=== PATIENT | male | born 1960 | race Caucasian/White ===

== ENCOUNTER 2021-01-21 08:06 | Emergency (ER) | payer MEDICAID ==
[2021-01-21] MEDS ORDERED: LORazepam 2 MG/ML SDV IM ONE (08:10)
[2021-01-21] MEDS ORDERED: Haloperidol Lactate 5 MG/ML SDV IM ONE (08:18)
--- NOTE | 2021-01-21 08:21 | EDM.PDOCBH ---
<Manpreet Guaman G - Last Filed: 01/22/21 09:58> ED HPI GENERAL MEDICAL PROBLEM - General Chief Complaint: Behavioral/Psych Stated Complaint: EVAL [facility]IA [facility] Time Seen by Provider: 01/21/21 08:16 Source of Information: Reports: EMS. Denies: Patient, Old Records History Limitations: Reports: Altered Mental Status, Other (minimal records) - History of Present Illness INITIAL COMMENTS - FREE TEXT/NARRATIVE: 60 yo male is brought in via EMS due to combativeness and screaming out of his apartment window most of the night in [place]. Police responded to his residence and noted patient was incoherent and agitated so EMS was called. Needs a mental health eval. Received 250 mg of IM ketamine per EMS en route. Clinic notes show a past hx of 1 ppd of cigarettes, alcohol use(not quantitated), depression, ED, and anxiety. His blood sugars have been borderline elevated and he has hyperlipidemia not on treatment. He is on Zoloft 50 mg qd, Viagra prn, and a baby ASA qd. His LFT's have been normal on all previous screens with the last being 09/18/20. Police state that they had heard from his landlord that his mental health has been deteriorating over the past month. Has not been sleeping lately. No know hx of drug use. Lives alone. Has a sister in the area that has been trying to connect him with mental health/social workers over the past 6 days. No progress made so far. Onset: Sudden (as best we know) Onset Date: 01/21/21 Duration: Hour(s):, Constant Location: Reports: Generalized Quality: Reports: Other (pain not reported) Severity: Severe Improves with: Reports: Medication Worsens with: Reports: Other (unsure) Context: Reports: Other (See HPI) Associated Symptoms: Reports: No Other Symptoms Treatments CHARTER REPRESENTATIVE: Reports: Other (see below) (Ketamine 250 mg IM) - Related Data Allergies Allergy/AdvReac Type Severity Reaction Status Date / Time No Known Allergies Allergy Verified 01/21/21 08:30 Home Meds: Home Meds Sertraline [Zoloft] 50 mg PO DAILY 01/21/21 [History] Past Medical History HEENT History: Reports: Other (See Below) Other HEENT History: lazy eye, burn on back of neck Musculoskeletal History: Reports: Back Pain, Chronic - Infectious Disease History Infectious Disease History: Reports: Chicken Pox, Measles, Mumps, Rubella - Past Surgical History Musculoskeletal Surgical History: Reports: Carpal Tunnel ED ROS GENERAL - Review of Systems Review Of Systems: Unable To Obtain Reason Not Obtained: Patient sedated from Ketamine ED EXAM, BEHAVIORAL HEALTH - Physical Exam Exam: See Below Exam Limited By: No Limitations General Appearance: Alert, WD/WN, No Apparent Distress (under the influence of Ketamine) Eye Exam: Bilateral Eye: Normal Inspection, PERRL Ears: Normal External Exam, Normal Canal Nose: Normal Inspection, No Blood Throat/Mouth: Normal Inspection, Normal Lips Head: Atraumatic, Normocephalic Neck: Normal Inspection Respiratory/Chest: No Respiratory Distress, Lungs Clear, Normal Breath Sounds, No Accessory Muscle Use Cardiovascular: Regular Rate, Rhythm, No Edema GI/Abdominal: Soft, Non-Tender, No Distention Extremities: Normal Inspection, No Pedal Edema Neurological: No Motor/Sensory Deficits Psychiatric: Other (sedated on arrival with 4 point restraints) Skin Exam: Warm, Dry, Intact, Normal color, No rash COURSE, BEHAVIORAL HEALTH COMP - Course Re-Assessment/Re-Exam Date: 01/22/21 (Is full cooperative today, but not thinking completley logically or rationally. I called his sister who plans to come and visit and shared with her my concerns about his elevated LFT's. We, she and I, both feel his mental health needs should currently be the priority and that after that she would make sure he gets the medical care he needs for his liver issues. ) Medical Clearance: 01/22/21 07:46 Is medically stable and cooperative now. Has some random thoughts suggesting underlying mental illness. Some delusional thinking. Slept nearly 24 hrs here. 01/22/21 08:30 Got served an eviction notice this past Wed. Not sleeping or eating much if any since then. Sister says he does not drink ETOH. Does smoke marijuana. Delusions new over the past 3 weeks or so. Sister does not think he is taking his meds. 01/22/21 08:34 Departure - Departure Disposition: Home, Self-Care 01 Clinical Impression: Major depression Qualifiers: Major depression recurrence: single episode Active/Remission status: currently active Major depression episode severity: unspecified Qualified Code(s): F32.9 - Major depressive disorder, single episode, unspecified - Discharge Information Instructions: Major Depressive Disorder, Adult Referrals: Lani Salazar NP [Ordering Only Provider] - 01/25/21 1:30 pm (Please arrive 15 minutes early to register for your appointment.) Forms: ED Department Discharge Care Plan Goals: A referral was made to the [facility]. You will receive a call explaining services available. A referral was made to [facility] for an Adult Mental Health Services. [facility] phone number is [phone]. <Damián Ferreira - Last Filed: 01/23/21 06:29> COURSE, BEHAVIORAL HEALTH COMP - Course Medical Clearance: 01/22/21 18:00 [Dr. Ferreira] Care of the patient is transferred from Dr. Guaman to [place] while awaiting placement in an adult inpatient psychiatric facility. 01/23/21 07:00 Care of the patient turned over to Dr. Garsia at 0700 hrs while awaiting placement. <Dalton Garsia - Last Filed: 01/24/21 08:20> COURSE, BEHAVIORAL HEALTH COMP - Course Vital Signs: Last Vital Signs Temp 97.9 F 01/23/21 05:18 Pulse 71 01/23/21 22:35 Resp 14 01/23/21 22:35 BP 136/85 01/23/21 22:35 Pulse Ox 97 01/23/21 22:35 Orders, Labs, Meds: Active Orders 24 hr Category Date Time Status OT Evaluation and Treatment [CONS] Routine Cons 01/23/21 09:31 Active Laboratory Tests 01/21/21 01/21/21 01/21/21 Range/Units 08:15 08:15 08:15 WBC 8.8 (4.5-11.0) K/uL RBC 4.65 (4.30-5.90) M/uL Hgb 15.0 (12.0-15.0) g/dL Hct 43.4 (40.0-54.0) % MCV 93 (80-98) fL MCH 32 H (27-31) pg MCHC 35 (32-36) % Plt Count 184 (150-400) K/uL Sodium (140-148) mmol/L Potassium (3.6-5.2) mmol/L Chloride (100-108) mmol/L Carbon Dioxide (21-32) mmol/L Anion Gap (5.0-14.0) mmol/L BUN (7-18) mg/dL Creatinine (0.8-1.3) mg/dL Est Cr Clr Drug Dosing mL/min Estimated GFR (MDRD) (>60) Glucose (74-106) mg/dL Calcium (8.5-10.1) mg/dL Total Bilirubin (0.2-1.0) mg/dL AST (15-37) U/L ALT (12-78) U/L Alkaline Phosphatase (46-116) U/L Total Protein (6.4-8.2) g/dL Albumin (3.4-5.0) g/dL Globulin (2.3-3.5) g/dL Albumin/Globulin Ratio (1.2-2.2) TSH, Ultra Sensitive (0.358-3.740) uIU/mL Urine Color Yellow (YELLOW) Urine Appearance Slightly cloudy A (CLEAR) Urine pH 5.5 (5.0-8.0) Ur Specific [place] >= 1.030 (1.008-1.030) Urine Protein 30 H (NEGATIVE) mg/dL Urine Glucose (UA) Negative (NEGATIVE) mg/dL Urine Ketones Trace H (NEGATIVE) mg/dL Urine Occult Blood Small H (NEGATIVE) Urine Nitrite Negative (NEGATIVE) Urine Bilirubin Small H (NEGATIVE) Urine Urobilinogen 0.2 (0.2-1.0) EU/dL Ur Leukocyte Esterase Negative (NEGATIVE) Urine RBC 0-5 (0-5) Urine WBC 0-5 (0-5) Ur Epithelial Cells Few Amorphous Sediment Many Urine Bacteria Moderate Urine Mucus Many Urine Other See note Salicylates (2.0-20.0) mg/dL Urine Opiates Screen Negative (NEGATIVE) Ur Oxycodone Screen Negative (NEGATIVE) Urine Methadone Screen Negative (NEGATIVE) Ur Propoxyphene Screen Negative (NEGATIVE) Acetaminophen (10.0-30.0) ug/mL Ur Barbiturates Screen Negative (NEGATIVE) Ur Tricyclics Screen Negative (NEGATIVE) Ur Phencyclidine Scrn Negative (NEGATIVE) Ur Amphetamine Screen Negative (NEGATIVE) U Methamphetamines Scrn Negative (NEGATIVE) Urine MDMA Screen Negative (NEGATIVE) U Benzodiazepines Scrn Negative (NEGATIVE) U Cocaine Metab Screen Negative (NEGATIVE) U Marijuana (THC) Screen Presumptive positive H (NEGATIVE) Ethyl Alcohol mg/dL Influenza Type A RNA (NEGATIVE) RSV RNA (INAAT) (NEGATIVE) Influenza Type B RNA (NEGATIVE) SARS-CoV-2 RNA (KIEL) (NEGATIVE) 01/21/21 01/21/21 01/21/21 Range/Units 08:15 08:15 13:32 WBC (4.5-11.0) K/uL RBC (4.30-5.90) M/uL Hgb (12.0-15.0) g/dL Hct (40.0-54.0) % MCV (80-98) fL MCH (27-31) pg MCHC (32-36) % Plt Count (150-400) K/uL Sodium 139 L (140-148) mmol/L Potassium 4.0 (3.6-5.2) mmol/L Chloride 102 (100-108) mmol/L Carbon Dioxide 24 (21-32) mmol/L Anion Gap 17.0 H (5.0-14.0) mmol/L BUN 22 H (7-18) mg/dL Creatinine 0.7 L (0.8-1.3) mg/dL Est Cr Clr Drug Dosing 112.32 mL/min Estimated GFR (MDRD) > 60 (>60) Glucose 107 H (74-106) mg/dL Calcium 8.9 (8.5-10.1) mg/dL Total Bilirubin 0.6 (0.2-1.0) mg/dL AST 116 H (15-37) U/L ALT 110 H (12-78) U/L Alkaline Phosphatase 65 (46-116) U/L Total Protein 6.9 (6.4-8.2) g/dL Albumin 3.7 (3.4-5.0) g/dL Globulin 3.2 (2.3-3.5) g/dL Albumin/Globulin Ratio 1.2 (1.2-2.2) TSH, Ultra Sensitive (0.358-3.740) uIU/mL Urine Color (YELLOW) Urine Appearance (CLEAR) Urine pH (5.0-8.0) Ur Specific [place] (1.008-1.030) Urine Protein (NEGATIVE) mg/dL Urine Glucose (UA) (NEGATIVE) mg/dL Urine Ketones (NEGATIVE) mg/dL Urine Occult Blood (NEGATIVE) Urine Nitrite (NEGATIVE) Urine Bilirubin (NEGATIVE) Urine Urobilinogen (0.2-1.0) EU/dL Ur Leukocyte Esterase (NEGATIVE) Urine RBC (0-5) Urine WBC (0-5) Ur Epithelial Cells Amorphous Sediment Urine Bacteria Urine Mucus Urine Other Salicylates (2.0-20.0) mg/dL Urine Opiates Screen (NEGATIVE) Ur Oxycodone Screen (NEGATIVE) Urine Methadone Screen (NEGATIVE) Ur Propoxyphene Screen (NEGATIVE) Acetaminophen (10.0-30.0) ug/mL Ur Barbiturates Screen (NEGATIVE) Ur Tricyclics Screen (NEGATIVE) Ur Phencyclidine Scrn (NEGATIVE) Ur Amphetamine Screen (NEGATIVE) U Methamphetamines Scrn (NEGATIVE) Urine MDMA Screen (NEGATIVE) U Benzodiazepines Scrn (NEGATIVE) U Cocaine Metab Screen (NEGATIVE) U Marijuana (THC) Screen (NEGATIVE) Ethyl Alcohol 1 mg/dL Influenza Type A RNA Negative (NEGATIVE) RSV RNA (INAAT) Negative (NEGATIVE) Influenza Type B RNA Negative (NEGATIVE) SARS-CoV-2 RNA (KIEL) Negative (NEGATIVE) 01/21/21 01/21/21 01/22/21 Range/Units 18:08 18:08 08:49 WBC (4.5-11.0) K/uL RBC (4.30-5.90) M/uL Hgb (12.0-15.0) g/dL Hct (40.0-54.0) % MCV (80-98) fL MCH (27-31) pg MCHC (32-36) % Plt Count (150-400) K/uL Sodium (140-148) mmol/L Potassium (3.6-5.2) mmol/L Chloride (100-108) mmol/L Carbon Dioxide (21-32) mmol/L Anion Gap (5.0-14.0) mmol/L BUN (7-18) mg/dL Creatinine (0.8-1.3) mg/dL Est Cr Clr Drug Dosing mL/min Estimated GFR (MDRD) (>60) Glucose (74-106) mg/dL Calcium (8.5-10.1) mg/dL Total Bilirubin (0.2-1.0) mg/dL AST 110 H (15-37) U/L ALT (12-78) U/L Alkaline Phosphatase (46-116) U/L Total Protein (6.4-8.2) g/dL Albumin (3.4-5.0) g/dL Globulin (2.3-3.5) g/dL Albumin/Globulin Ratio (1.2-2.2) TSH, Ultra Sensitive (0.358-3.740) uIU/mL Urine Color (YELLOW) Urine Appearance (CLEAR) Urine pH (5.0-8.0) Ur Specific [place] (1.008-1.030) Urine Protein (NEGATIVE) mg/dL Urine Glucose (UA) (NEGATIVE) mg/dL Urine Ketones (NEGATIVE) mg/dL Urine Occult Blood (NEGATIVE) Urine Nitrite (NEGATIVE) Urine Bilirubin (NEGATIVE) Urine Urobilinogen (0.2-1.0) EU/dL Ur Leukocyte Esterase (NEGATIVE) Urine RBC (0-5) Urine WBC (0-5) Ur Epithelial Cells Amorphous Sediment Urine Bacteria Urine Mucus Urine Other Salicylates 4.1 (2.0-20.0) mg/dL Urine Opiates Screen (NEGATIVE) Ur Oxycodone Screen (NEGATIVE) Urine Methadone Screen (NEGATIVE) Ur Propoxyphene Screen (NEGATIVE) Acetaminophen 0.0 L (10.0-30.0) ug/mL Ur Barbiturates Screen (NEGATIVE) Ur Tricyclics Screen (NEGATIVE) Ur Phencyclidine Scrn (NEGATIVE) Ur Amphetamine Screen (NEGATIVE) U Methamphetamines Scrn (NEGATIVE) Urine MDMA Screen (NEGATIVE) U Benzodiazepines Scrn (NEGATIVE) U Cocaine Metab Screen (NEGATIVE) U Marijuana (THC) Screen (NEGATIVE) Ethyl Alcohol mg/dL Influenza Type A RNA (NEGATIVE) RSV RNA (INAAT) (NEGATIVE) Influenza Type B RNA (NEGATIVE) SARS-CoV-2 RNA (KIEL) (NEGATIVE) 01/22/21 Range/Units 17:40 WBC (4.5-11.0) K/uL RBC (4.30-5.90) M/uL Hgb (12.0-15.0) g/dL Hct (40.0-54.0) % MCV (80-98) fL MCH (27-31) pg MCHC (32-36) % Plt Count (150-400) K/uL Sodium (140-148) mmol/L Potassium (3.6-5.2) mmol/L Chloride (100-108) mmol/L Carbon Dioxide (21-32) mmol/L Anion Gap (5.0-14.0) mmol/L BUN (7-18) mg/dL Creatinine (0.8-1.3) mg/dL Est Cr Clr Drug Dosing mL/min Estimated GFR (MDRD) (>60) Glucose (74-106) mg/dL Calcium (8.5-10.1) mg/dL Total Bilirubin (0.2-1.0) mg/dL AST (15-37) U/L ALT (12-78) U/L Alkaline Phosphatase (46-116) U/L Total Protein (6.4-8.2) g/dL Albumin (3.4-5.0) g/dL Globulin (2.3-3.5) g/dL Albumin/Globulin Ratio (1.2-2.2) TSH, Ultra Sensitive 0.894 (0.358-3.740) uIU/mL Urine Color (YELLOW) Urine Appearance (CLEAR) Urine pH (5.0-8.0) Ur Specific [place] (1.008-1.030) Urine Protein (NEGATIVE) mg/dL Urine Glucose (UA) (NEGATIVE) mg/dL Urine Ketones (NEGATIVE) mg/dL Urine Occult Blood (NEGATIVE) Urine Nitrite (NEGATIVE) Urine Bilirubin (NEGATIVE) Urine Urobilinogen (0.2-1.0) EU/dL Ur Leukocyte Esterase (NEGATIVE) Urine RBC (0-5) Urine WBC (0-5) Ur Epithelial Cells Amorphous Sediment Urine Bacteria Urine Mucus Urine Other Salicylates (2.0-20.0) mg/dL Urine Opiates Screen (NEGATIVE) Ur Oxycodone Screen (NEGATIVE) Urine Methadone Screen (NEGATIVE) Ur Propoxyphene Screen (NEGATIVE) Acetaminophen (10.0-30.0) ug/mL Ur Barbiturates Screen (NEGATIVE) Ur Tricyclics Screen (NEGATIVE) Ur Phencyclidine Scrn (NEGATIVE) Ur Amphetamine Screen (NEGATIVE) U Methamphetamines Scrn (NEGATIVE) Urine MDMA Screen (NEGATIVE) U Benzodiazepines Scrn (NEGATIVE) U Cocaine Metab Screen (NEGATIVE) U Marijuana (THC) Screen (NEGATIVE) Ethyl Alcohol mg/dL Influenza Type A RNA (NEGATIVE) RSV RNA (INAAT) (NEGATIVE) Influenza Type B RNA (NEGATIVE) SARS-CoV-2 RNA (KIEL) (NEGATIVE) Medications Discontinued Medications Generic Name Dose Route Start Last Admin Trade Name Freq PRN Reason Stop Dose Admin Haloperidol Lactate 5 mg 01/21/21 08:18 01/21/21 08:44 Haloperidol Lactate 5 Mg/Ml Sdv IM 01/21/21 08:19 5 mg ONETIME ONE Administration Multivitamins/Minerals 10 ml/ 1,017.2 mls @ 500 mls/hr 01/21/21 11:45 01/21/21 12:10 Thiamine HCl 100 mg/ Folic IV 01/21/21 13:47 500 mls/hr Acid 1 mg/ Magnesium Sulfate 3 ASDIRECTED ONE Administration gm/ Sodium Chloride Lorazepam 2 mg 01/21/21 08:10 01/21/21 08:44 Lorazepam 2 Mg/Ml Sdv IM 01/21/21 08:11 2 mg ONETIME ONE Administration Nicotine 21 mg 01/22/21 11:25 01/22/21 12:02 Nicotine 21 Mg/24 Hr Patch TRDERM 01/22/21 11:26 21 mg ONETIME ONE Administration Nicotine 21 mg 01/23/21 17:29 01/23/21 18:05 Nicotine 21 Mg/24 Hr Patch TRDERM 01/23/21 17:30 21 mg ONETIME ONE Administration Olanzapine 10 mg 01/22/21 19:06 01/22/21 19:14 Olanzapine 5 Mg Tab PO 01/22/21 19:07 10 mg ONETIME ONE Administration Olanzapine 10 mg 01/23/21 21:52 01/23/21 22:38 Olanzapine 5 Mg Tab PO 01/23/21 21:53 Not Given ONETIME ONE Medical Clearance: 01/23/21 10:46 To better assist with placement consultation with Occupational Therapy for Mini- Mental Status exam and assessment for possibility of dementia 01/23/21 16:50 Mini-Mental was performed he scored 29 out of 30 consultation with discharge planning we are setting him up with an arms worker there is some question of he may have been evicted from his home we are going to contact [facility] to follow-up on this eviction to find out more details to see if he has a home to go to. Also in contact with his sister for further assistance. Referral was also made to the community licensed electrician program. 01/23/21 16:51 Departure - Departure Time of Disposition: 08:19 Condition: Fair Sepsis Event Note (ED) - Focused Exam Vital Signs: Vital Signs Pulse Resp BP Pulse Ox 01/23/21 22:35 71 14 136/85 97 - My Orders Last 24 Hours: My Active Orders 01/23/21 09:31 OT Evaluation and Treatment [CONS] Routine - Assessment/Plan Last 24 Hours: My Active Orders 01/23/21 09:31 OT Evaluation and Treatment [CONS] Routine Plan: Assessment Acuity = acute Site and laterality = major depression Etiology = unknown Manifestations = verbal outbursts difficulty with sleeping insomnia Location of injury = Home Lab values = CBC, CMP unremarkable thyroid within normal limits urine drug screen positive for cannabis Plan We were unable to secure placement for him however we did have an arms worker set up as well as a community licensed electrician for continued follow-up referral has been made. He does have an appointment with his new primary care on of this week he is discharged home with his sister This note was dictated using [employer] voice recognition software please call with any questions on syntax or grammar.
[2021-01-21] MEDS ORDERED: MVI, Adult with Vitamin K 10 ML, Thiamine 100 MG, Folic Acid 1 MG, Magnesium Sulfate 3 ... IV SCH ×5 (11:00)
[2021-01-21] MEDS ORDERED: MVI, Adult with Vitamin K 10 ML, Thiamine 100 MG, Folic Acid 1 MG, Magnesium Sulfate 3 ... IV ONE ×5 (11:45)
[2021-01-21 14:13] LABS: CORONAVIRUS COVID-19 NAA NEGATIVE (NEGATIVE)
[2021-01-22] MEDS ORDERED: Nicotine 21 MG/24 Hr Patch TRDERM ONE (11:25)
[2021-01-22] MEDS ORDERED: OLANZapine 5 MG Tab PO ONE (19:06)
[2021-01-23] MEDS ORDERED: Nicotine 21 MG/24 Hr Patch TRDERM ONE (17:29)
[2021-01-23 22:37] VITALS: BP 136/85; PULSE 71
[2021-01-23] MEDS: OLANZapine 5 MG Tab PO ONE ×2 (22:37→22:38)
== END 2021-01-24 08:20 | disposition home or self-care (01) ==
LOC: JP.ED 08:06
DX: F32.9 Major depressive disorder, single episode, unspecified (principal); Z20.822 Contact with and (suspected) exposure to COVID-19
CPT/HCPCS: 0241U; 36415; 80053; 80143; 80179; 80305; 80307; 81001; 85027; 96365; 96366; 96372; 99285; J1630; J2060; J3411; J3475; J7030; J3490